=== PATIENT | female | born 1985 | race African-American/Black ===

== ENCOUNTER 2022-09-01 16:58 | Emergency (ER) | payer MEDICAID ==
[2022-09-01] MEDS ORDERED: Sodium Chloride 0.9% 1,000 ML IV ONE (18:33)
[2022-09-01] MEDS ORDERED: Ondansetron 4 MG/2 ML SDV IVPUSH ONE (18:43)
[2022-09-01 19:23] LABS: CARBON DIOXIDE,CO2 24.2 mmol/L (21.0-32.0); POTASSIUM,K 3.8 mmol/L (3.5-5.1)
== END 2022-09-01 21:46 | disposition home or self-care (01) ==
LOC: MW.ED 16:58
DX: O99.611 Diseases of the digestive system complicating pregnancy, first trimester (principal); K59.00 Constipation, unspecified; O21.0 Mild hyperemesis gravidarum; O99.011 Anemia complicating pregnancy, first trimester; D64.9 Anemia, unspecified; O99.111 Other diseases of the blood and blood-forming organs and certain disorders involving the immune mechanism complicating pregnancy, first trimester; D72.829 Elevated white blood cell count, unspecified; Z3A.13 13 weeks gestation of pregnancy
CPT/HCPCS: 36415; 76801; 80053; 81003; 83690; 84703; 85025; 96361; 96374; 99284; J2405; J7030; 99283

== ENCOUNTER 2022-09-06 00:35 | Observation (INO) | payer MEDICAID ==
[2022-09-06] MEDS ORDERED: Sodium Chloride 0.9% 2.5 ML Syringe FLUSH PRN (01:27)
[2022-09-06] MEDS ORDERED: Sodium Chloride 0.9% 10 ML Syringe FLUSH PRN (01:27)
[2022-09-06] MEDS ORDERED: Acetaminophen 325 MG Tab PO ONE (01:32)
[2022-09-06] MEDS ORDERED: Sodium Chloride 0.9% 1,000 ML IV ONE (02:06)
[2022-09-06 02:17] LABS: CARBON DIOXIDE,CO2 24.3 mmol/L (21.0-32.0); POTASSIUM,K 4.2 mmol/L (3.5-5.1)
[2022-09-06] MEDS ORDERED: Morphine 4 MG/ML Syringe IVPUSH ONE (03:18)
[2022-09-06] MEDS ORDERED: Promethazine 25 MG/ML SDV IM ONE (04:36)
[2022-09-06] MEDS ORDERED: Lactated Ringers 1,000 ML IV ONE ×2 (05:30→14:33)
[2022-09-06] MEDS ORDERED: Morphine 2 MG/ML SYRINGE IVPUSH STA (05:50)
[2022-09-06] MEDS: Morphine 2 MG/ML SYRINGE IVPUSH PRN ×2 (09:49→16:23)
[2022-09-06] MEDS ORDERED: Lactated Ringers 1,000 ML IV SCH (14:30)
[2022-09-07] MEDS: Acetaminophen 325 MG Tab PO PRN ×2 (02:06→09:03)
== END 2022-09-07 10:00 | disposition home or self-care (01) ==
LOC: MW.ED 00:35 → MW.OB 04:20
PROVIDERS: ADMIT Obstetrics & Gynecology Obstetrics; ATTEND Obstetrics & Gynecology Obstetrics
DX: O26.892 Other specified pregnancy related conditions, second trimester (principal); R10.32 Left lower quadrant pain; N83.53 Torsion of ovary, ovarian pedicle and fallopian tube; Z3A.14 14 weeks gestation of pregnancy; Z91.040 Latex allergy status
CPT/HCPCS: 36415; 76705; 76801; 76815; 80053; 81001; 85025; 87086; 96361; 96372; 96374; 96376; 99285; A9270; G0378; J2270; J2550; J3490; J7030; J7120

== ENCOUNTER 2023-01-21 13:17 | Emergency (ER) | payer MEDICAID | END 2023-01-21 13:27 | disposition left against medical advice (07) | LOC: MW.ED 13:17 | DX: Z53.21 Procedure and treatment not carried out due to patient leaving prior to being seen by health care provider (principal) ==

== ENCOUNTER 2023-02-22 05:05 | Inpatient (IN) | payer MEDICAID ==
[2023-02-22] MEDS ORDERED: Phenylephrine HCl 0.5 MG/5 ML AMP IVPUSH PRN (13:47)
[2023-02-22] MEDS ORDERED: ePHEDrine 50 MG/ML SDV IVPUSH PRN ×2 (13:47)
[2023-02-22] MEDS ORDERED: Ropivacaine HCl/PF 400 MG in Premix Bag 1 BAG EPIDUR SCH (14:00)
[2023-02-22] MEDS ORDERED: Lidocaine 1% 50 ML MDV INJECT PRN (19:15)
[2023-02-22] MEDS ORDERED: Tranexamic Acid IN NACL,ISO-OS 1,000 MG in Premix Bag 1 BAG IV PRN ×2 (19:15)
[2023-02-22] MEDS ORDERED: Sodium Chloride 0.9% 2.5 ML Syringe FLUSH PRN (19:15)
[2023-02-22] MEDS ORDERED: Terbutaline 1 MG/ML SDV SUBCUT PRN (19:15)
[2023-02-22] MEDS ORDERED: Carboprost Tromethamine 250 MCG/1 mL Vial IM PRN (19:15)
[2023-02-22] MEDS ORDERED: Ondansetron 4 MG/2 ML SDV IVPUSH PRN (19:15)
[2023-02-22] MEDS ORDERED: Water For Irrigation,Sterile 1,000 ML Container IRR PRN (19:15)
[2023-02-22] MEDS ORDERED: Misoprostol 200 MCG Tab PO PRN (19:15)
[2023-02-22] MEDS ORDERED: Sodium Chloride 0.9% 20 ML SDV IV PRN (19:15)
[2023-02-22] MEDS ORDERED: Methylergonovine 0.2 MG/1 ML Amp IM PRN (19:15)
[2023-02-22] MEDS ORDERED: Oxytocin/0.9 % Sodium Chloride 30 UNIT/500 ML BAG IV SCH ×2 (19:15)
[2023-02-22] MEDS ORDERED: Sodium Chloride 0.9% 10 ML Syringe FLUSH PRN (19:15)
[2023-02-22] MEDS ORDERED: Misoprostol 25 MCG (1/4 of 100 MCG) Tab PO ONE (20:00)
[2023-02-22] MEDS ORDERED: Misoprostol 25 MCG (1/4 of 100 MCG) Tab VAG PRN (20:00)
[2023-02-22] MEDS: Lactated Ringers 1,000 ML IV SCH (20:20)
[2023-02-22 20:41] LABS: HEMATOCRIT 27.2 % (37.0-47.0); HEMOGLOBIN 8.8 g/dL (12.0-16.0); MEAN CORPUSCULAR HGB CONC 32.4 g/dL (32.0-36.0); NRBC ABSOLUTE 0.27 K/uL (0.00-0.02); NRBC PERCENT 2.7 /100WBC (0.0-0.2); PLATELET COUNT,PLT 287 K/uL (150-400); RED BLOOD CELL COUNT 4.41 M/uL (4.10-5.30); WHITE BLOOD CELL COUNT,WBC 10.11 K/uL (3.9-11.3)
[2023-02-22 21:36] LABS: MEAN CORPUSCULAR VOLUME 61.7 fL (83.0-99.0)
[2023-02-23] MEDS ORDERED: Misoprostol 25 MCG (1/4 of 100 MCG) Tab VAG PRN
[2023-02-23] MEDS ORDERED: Misoprostol 25 MCG (1/4 of 100 MCG) Tab PO SCH (01:00)
[2023-02-23] MEDS: Lactated Ringers 1,000 ML IV SCH (01:03)
[2023-02-23] MEDS ORDERED: Nalbuphine 10 MG/0.5 ML Syringe IVPUSH SCH (01:30)
[2023-02-23] MEDS ORDERED: Lanolin 100% Cream 7 GM Tube TOP PRN (01:50)
[2023-02-23] MEDS ORDERED: Acetaminophen 500 MG Tab PO PRN (01:50)
[2023-02-23] MEDS ORDERED: Ibuprofen 400 MG Tab PO PRN (01:50)
[2023-02-23] MEDS ORDERED: Benzocaine/Menthol 20%-0.5% Spray 78 GM Cannister TOP PRN (01:50)
[2023-02-23] MEDS ORDERED: Docusate Sodium 100 MG Cap PO PRN (01:50)
[2023-02-23] MEDS ORDERED: Witch Hazel Medicated Pads 40/Jar TOP PRN (01:50)
[2023-02-23] MEDS ORDERED: Bisacodyl 10 MG Supp RECTAL PRN (01:50)
[2023-02-23] MEDS: Acetaminophen 500 MG Tab PO PRN ×4 (02:09→19:25)
[2023-02-23] MEDS: Ibuprofen 800 MG Tab PO PRN ×3 (02:11→15:52)
[2023-02-24] MEDS: Ibuprofen 800 MG Tab PO PRN (05:41)
[2023-02-24 06:13] LABS: HEMATOCRIT 23.4 % (37.0-47.0); HEMOGLOBIN 7.6 g/dL (12.0-16.0)
== END 2023-02-24 12:45 | disposition home or self-care (01) | DRG 807 ==
LOC: MW.OBCHECK 05:05 → MW.OB 05:06 → MW.OBCHECK 05:21 → MW.OB 05:21 → OBSVTOIN 02-23 01:33 → MW.OB 02-23 05:03
PROVIDERS: ADMIT Obstetrics & Gynecology Obstetrics; ATTEND Obstetrics & Gynecology Obstetrics
PROC: 10E0XZZ Delivery of Products of Conception, External Approach (ICD-10-PCS; principal; 2023-02-23)
PROC: 3E033VJ Introduction of Other Hormone into Peripheral Vein, Percutaneous Approach (ICD-10-PCS; 2023-02-23)
PROC: 3E0P7VZ Introduction of Hormone into Female Reproductive, Via Natural or Artificial Opening (ICD-10-PCS; 2023-02-23)
DX: O69.81X0 Labor and delivery complicated by cord around neck, without compression, not applicable or unspecified (principal); Z37.0 Single live birth; Z3A.39 39 weeks gestation of pregnancy; Z91.040 Latex allergy status
CPT/HCPCS: 36415; 59025; 59409; 85014; 85018; 85027; 86592; 86850; 86900; 86901; A9270-GY; J2590; J7120